=== PATIENT | female | born 1985 | race Caucasian/White ===

== ENCOUNTER → 2016-09-04 | Outpatient (CLI) | payer BC | LOC: OPSV 10:53 | DX: K50.90 Crohn's disease, unspecified, without complications (principal) | CPT/HCPCS: 96375; 96413; 96415; J1720; J1745; J7030 ==

== ENCOUNTER → 2016-10-16 | Outpatient (CLI) | payer BC ==
[~2016-10-16] VITALS: Ht 172.7 cm; Wt 129.7 kg
[2016-10-16 12:56] LABS: HEMOGLOBIN 13.6 gm/dl (12.3-15.3); RED BLOOD COUNT 4.16 M/UL (4.00-5.10); WHITE BLOOD COUNT 7.4 K/UL (4.5-11.0)
[2016-10-16 13:19] LABS: BUN/CREATININE RATIO 18 (0-10)
== END ==
LOC: OPSV 11:14
PROVIDERS: Internal Medicine Gastroenterology
DX: K50.90 Crohn's disease, unspecified, without complications (principal)
CPT/HCPCS: 36415; 80053; 85027; 86140; 96365; 96366; J1720; J1745; J7030

== ENCOUNTER → 2016-12-04 | Outpatient (CLI) | payer BC ==
[~2016-12-04] VITALS: Ht 172.7 cm; Wt 129.7 kg
== END ==
LOC: OPSV 11-27 11:00
DX: K50.90 Crohn's disease, unspecified, without complications (principal)
CPT/HCPCS: 96375; 96413; 96415; J1720; J1745